=== PATIENT | female | born 1965 | race Caucasian/White ===

== ENCOUNTER 2020-01-04 03:54 | Emergency (ER) | payer BC ==
[2020-01-04 04:01] VITALS: BP 142/126; PULSE 61
--- NOTE | 2020-01-04 04:09 | EDM.PDOC ---
ED HPI GENERAL MEDICAL PROBLEM - General Chief Complaint: Abdominal Pain Stated Complaint: SIDE PAIN Time Seen by Provider: 01/04/20 04:00 - History of Present Illness INITIAL COMMENTS - FREE TEXT/NARRATIVE: 54-year-old female presents the emergency room with significant left-sided abdominal pain. Patient awoke with excruciating pain on the left side of her abdomen. She had no pain over on the right side of her abdomen this was associated with some nausea. Patient is not aware of any fevers or chills she has not had any constipation or diarrhea. She has not noticed any blood in her urine. She is only treated for anxiety at this point and she has had a history of a hysterectomy. Left Abdomen Pain Score (Numeric/FACES): 10 - Related Data Allergies Allergy/AdvReac Type Severity Reaction Status Date / Time No Known Allergies Allergy Verified 01/04/20 04:03 Home Meds: Home Meds ALPRAZolam [Xanax] 0.5 mg PO ASDIRECTED 10/07/15 [History] Past Medical History Psychiatric History: Reports: Anxiety - Past Surgical History Female Surgical History: Reports: Hysterectomy ED ROS GENERAL - Review of Systems Review Of Systems: See Below Constitutional: Reports: No Symptoms HEENT: Reports: No Symptoms Respiratory: Reports: No Symptoms Cardiovascular: Reports: No Symptoms GI/Abdominal: Reports: Abdominal Pain, Nausea. Denies: Constipation, Diarrhea : Reports: Flank Pain. Denies: Hematuria Musculoskeletal: Reports: No Symptoms Skin: Reports: No Symptoms Neurological: Reports: No Symptoms ED EXAM, GI/ABD - Physical Exam Exam: See Below Exam Limited By: No Limitations General Appearance: Alert, No Apparent Distress Head: Atraumatic, Normocephalic Neck: Normal Inspection, Supple, Non-Tender, Full Range of Motion Respiratory/Chest: No Respiratory Distress, Lungs Clear, Normal Breath Sounds Cardiovascular: Regular Rate, Rhythm, No Edema, No Murmur GI/Abdominal Exam: Normal Bowel Sounds, Soft, Other (She has significant left- sided abdominal tenderness however this is not worsened with palpation. No rigidity rebound or guarding noted.) Back Exam: Normal Inspection. No: CVA Tenderness (L), CVA Tenderness (R) Extremities: Normal Inspection, No Pedal Edema Neurological: Alert, Oriented, Normal Cognition Course - Vital Signs Last Recorded V/S: Last Vital Signs Temp 36.1 C 01/04/20 04:01 Pulse 61 01/04/20 04:01 Resp 20 01/04/20 04:01 BP 142/126 H 01/04/20 04:01 Pulse Ox 92 L 01/04/20 04:01 - Orders/Labs/Meds Orders: Active Orders 24 hr Category Date Time Status Abdomen Pelvis wo Cont [CT] Stat Exams 01/04/20 04:47 Taken Labs: Laboratory Tests 01/04/20 01/04/20 01/04/20 Range/Units 04:10 04:10 04:21 WBC 15.02 H (3.98-10.04) K/mm3 RBC 4.11 (3.98-5.22) M/mm3 Hgb 12.7 (11.2-15.7) gm/dl Hct 39.4 (34.1-44.9) % MCV 95.9 H (79.4-94.8) fl MCH 30.9 (25.6-32.2) pg MCHC 32.2 (32.2-35.5) g/dl RDW Std Deviation 46.8 H (36.4-46.3) fL Plt Count 323 D (182-369) K/mm3 MPV 8.9 L (9.4-12.3) fl Neut % (Auto) 62.1 (34.0-71.1) % Lymph % (Auto) 29.7 (19.3-51.7) % [place] % (Auto) 6.0 (4.7-12.5) % Eos % (Auto) 1.6 (0.7-5.8) Baso % (Auto) 0.4 (0.1-1.2) % Neut # (Auto) 9.33 H (1.56-6.13) K/mm3 Lymph # (Auto) 4.46 H (1.18-3.74) K/mm3 [place] # (Auto) 0.90 H (0.24-0.36) K/mm3 Eos # (Auto) 0.24 (0.04-0.36) K/mm3 Baso # (Auto) 0.06 (0.01-0.08) K/mm3 Manual Slide Review Normal smear Sodium 140 (136-145) mEq/L Potassium 3.4 L (3.5-5.1) mEq/L Chloride 104 (98-107) mEq/L Carbon Dioxide 27 (21-32) mEq/L Anion Gap 12.4 (5-15) BUN 25 H (7-18) mg/dL Creatinine 0.9 (0.55-1.02) mg/dL Est Cr Clr Drug Dosing 75.86 mL/min Estimated GFR (MDRD) > 60 (>60) mL/min BUN/Creatinine Ratio 27.8 H (14-18) Glucose 191 H (74-106) mg/dL Calcium 8.7 (8.5-10.1) mg/dL Total Bilirubin 0.3 (0.2-1.0) mg/dL AST 15 (15-37) U/L ALT 19 (14-59) U/L Alkaline Phosphatase 77 (46-116) U/L Total Protein 7.0 (6.4-8.2) g/dl Albumin 3.5 (3.4-5.0) g/dl Globulin 3.5 gm/dL Albumin/Globulin Ratio 1.0 (1-2) Lipase 103 (73-393) U/L Urine Color Yellow (Yellow) Urine Appearance Clear (Clear) Urine pH 5.5 (5.0-8.0) Ur Specific [place] > or = 1.030 (1.005-1.030) Urine Protein Negative (Negative) Urine Glucose (UA) Negative (Negative) Urine Ketones Negative (Negative) Urine Occult Blood 2+ H (Negative) Urine Nitrite Negative (Negative) Urine Bilirubin Negative (Negative) Urine Urobilinogen 0.2 (0.2-1.0) Ur Leukocyte Esterase Negative (Negative) Urine RBC 5-10 H (0-5) /hpf Urine WBC 0-5 (0-5) /hpf Ur Squamous Epith Cells 5-10 H (0-5) /hpf Urine Bacteria Few (FEW) /hpf Urine Mucus Moderate H (FEW) /hpf Meds: Medications Discontinued Medications Generic Name Dose Route Start Last Admin Trade Name Freq PRN Reason Stop Dose Admin Lactated Ringer's 1,000 mls @ 125 mls/hr 01/04/20 04:30 01/04/20 04:27 Ringers, Lactated IV 125 mls/hr ASDIRECTED KYLAH Administration Lorazepam 1 mg 01/04/20 04:30 01/04/20 04:33 Ativan IVPUSH 01/04/20 04:31 1 mg ONETIME ONE Administration Lorazepam Confirm 01/04/20 04:32 01/04/20 06:07 Ativan Administered 01/04/20 04:33 Not Given Dose 2 mg .ROUTE .STK-MED ONE Ondansetron HCl 4 mg 01/04/20 04:20 01/04/20 04:27 Zofran IVPUSH 01/04/20 04:21 4 mg ONETIME ONE Administration - Re-Assessments/Exams Free Text/Narrative Re-Assessment/Exam: 01/04/20 06:17 Labs checked see above of note significant hematuria microscopic. Given her history a CT KUB was obtained which showed no hydronephrosis but mild perinephric stranding and left periureteral stranding there is a 2 mm calculus in the right side of the bladder this is thought possibly to represent a kidney stone excreted from the left ureter. At this time the patient is doing much better. She was able to sleep without difficulty. She would like to go home and get some rest. We discussed straining her urine and will give her the supplies to do so. Departure - Departure Time of Disposition: 06:18 Disposition: Home, Self-Care 01 Clinical Impression: Kidney stone on left side, Left sided abdominal pain - Discharge Information Instructions: Kidney Stones, [id number] Referrals: PCP,None [Primary Care Provider] - Forms: ED Department Discharge Additional Instructions: Return to the emergency room with any questions problems or worsening symptoms. Attempt to strain your urine and capture the stone. Follow-up with your healthcare provider this next week for recheck. If you were able to capture the stone bring it with you. Sepsis Event Note (ED) - Focused Exam Vital Signs: Vital Signs Temp Pulse Resp BP Pulse Ox 01/04/20 04:01 36.1 C 61 20 142/126 H 92 L - My Orders Last 24 Hours: My Active Orders 01/04/20 04:47 Abdomen Pelvis wo Cont [CT] Stat - Assessment/Plan Last 24 Hours: My Active Orders 01/04/20 04:47 Abdomen Pelvis wo Cont [CT] Stat
[2020-01-04] MEDS ORDERED: Ondansetron 4 MG/2 ML SDV IVPUSH ONE (04:20)
[2020-01-04] MEDS ORDERED: LORazepam 2 MG/ML SDV IVPUSH ONE (04:30)
[2020-01-04] MEDS ORDERED: Lactated Ringers 1,000 ML IV SCH (04:30)
[2020-01-04] MEDS ORDERED: LORazepam 2 MG/ML SDV ONE (04:32)
--- NOTE | 2020-01-04 10:00 | CT ---
CT abdomen and pelvis Technique: Multiple axial sections were obtained from above the dome of the diaphragm inferiorly through the pubic symphysis. Intravenous and oral contrast were not utilized. Study has been performed as a ureteral stone protocol. Comparison: Prior abdominal x-ray of 08/23/12 is available. Findings: Slight haziness around the left kidney is seen as well as mild edema around the proximal left ureter. These findings are likely due to recent ureteral obstruction. No stone is seen within the ureter on the current study although a small calcification is present within the right bladder measuring 2.2 mm most likely representing a stone that has been recently passed. Kidneys show no abnormal calcifications. Visualized lung bases show a small collection of cysts within the right base. Slight scarring is noted within both lung bases. Liver shows a low density lesion within the right lobe which is compatible with a cyst measuring 2.5 cm. Smaller cyst is noted within the left lobe of the liver measuring about 2 mm. Small cyst is noted within the inferior right lobe of the liver measuring 4 mm. No additional abnormality is appreciated within the liver. Spleen appears within normal limits. Adrenal glands show no nodule. Aorta shows atherosclerotic calcification which continues into the iliac vessels. Gallbladder contains no calcified gallstones. No retroperitoneal adenopathy or mesenteric abnormalities are seen. No pelvic mass or adenopathy is seen. No free fluid or inflammatory change is appreciated. Bone window settings were reviewed. Degenerative change is scattered within the spine most severe at L5-S1 with disc space narrowing and vacuum phenomena. Impression: 1. Findings felt compatible with recently passed left-sided ureteral calculus with small calculus now seen within the bladder. Please correlate if patient's symptoms have improved. 2. Other findings as noted above which are nonacute. Diagnostic code #3 This report was dictated in MDT I agree with preliminary report from [facility], finalized on 01/04/20, 6:46 AM Central Daylight Time
== END 2020-01-04 06:25 | disposition home or self-care (01) ==
LOC: JD.ED 03:54
DX: N20.0 Calculus of kidney (principal)
CPT/HCPCS: 36415; 74176; 80053; 81001; 83690; 85025; 96361; 96374; 96375; 99284; J2060; J2405; J7120; 99283